=== PATIENT | female | born 1975 | race American Indian/Alaskan Native ===

== ENCOUNTER 2019-08-23 22:38 | Emergency (ER) | payer MEDICAID, OTHER ==
--- NOTE | 2019-08-23 22:49 | Event Note ---
ED Screening Note Date of service: 08/23/19 Time: 22:48 ED Screening Note: 44 y o f presents with dysuria and suprapubic pain This initial assessment/diagnostic orders/clinical plan/treatment(s) is/are subject to change based on patients health status, clinical progression and re- assessment by fellow clinical providers in the ED. Further treatment and workup at subsequent clinical providers discretion. Patient/guardian urged not to elope from the ED as their condition may be serious if not clinically assessed and managed. Initial orders include: ua
[2019-08-24 00:55] LABS: Bilirubin,Urine NEG (Negative); Blood,Urine NEG (Negative); Color,Urine Yellow (Yellow); Mucus,Urine FEW /HPF; Protein,Urine <15 mg/dL mg/dL (Negative)
[2019-08-24 00:59] LABS: HCG Qualitative,Urine Negative (Negative)
[2019-08-24] MEDS ORDERED: SILVER NITRATE APPLICATOR 1 EA TP ONE ×2 (01:06→01:08)
--- NOTE | 2019-08-24 01:16 | Emergency Department Report ---
ED Female HPI - General Chief complaint: Urogenital-Female Stated complaint: PAINFUL VAGINAL CYST Time Seen by Provider: 08/23/19 22:48 Source: patient Mode of arrival: Ambulatory Limitations: No Limitations - History of Present Illness Initial comments: Patient is a 44-year-old female who presents to the ED with complaints of bartholins cyst left side that began yesterday. She states she has discomfort with walking and sitting. Patient states that she feels a pressure. she denies any drainage. She denies any fever, nausea, vomiting, abdominal pain, vaginal discharge, urinary symptoms. Patient states that she has had this bartholins cyst recurrently for the last 25 years and has to have it lanced approximately every 2 years. Patient states that she was supposed to have a surgical procedure performed when she was in [place] but she moved to [place] and does not have an AUTO SERVICE WRITER here. LNMP was August 14. She denies any allergies to m edications. - Related Data Home Medications Medication Instructions Recorded Confirmed Last Taken Vistaril 25 mg PO Q4H PRN 09/06/13 11/12/13 09/04/13 Previous Rx's Medication Instructions Recorded Last Taken Type Famotidine [Pepcid] 40 mg PO QHS #30 tablet 12/02/13 Unknown Rx Magnesium Hydroxide [Milk of 2,400 mg PO QDAY PRN #100 ml 12/02/13 Unknown Rx Magnesia] Metoclopramide HCl [Reglan] 10 mg PO Q6H PRN #60 tablet 12/02/13 Unknown Rx Vit-Fe Fumar-FA [ 1 each PO QDAY #30 tablet 12/02/13 Unknown Rx Vitamin] cephALEXin [Keflex] 500 mg PO Q6H #28 capsule 12/02/13 Unknown Rx Allergies Allergy/AdvReac Type Severity Reaction Status Date / Time No Known Allergies Allergy Verified 12/01/13 18:20 ED Review of Systems ROS: Stated complaint: PAINFUL VAGINAL CYST Other details as noted in HPI Comment: All other systems reviewed and negative ED Past Medical Hx - Past Medical History Hx Psychiatric Treatment: Yes (anxiety, PTSD, borderline personality, MDD) Additional medical history: HPV, Barretts esophagus - Surgical History Additional Surgical History: Ovarian Cyst removal-1992, meniscus tear - Social History Smoking Status: Current Every Day Smoker - Medications Home Medications: Home Medications Medication Instructions Recorded Confirmed Last Taken Type Vistaril 25 mg PO Q4H PRN 09/06/13 11/12/13 09/04/13 History Famotidine [Pepcid] 40 mg PO QHS #30 tablet 12/02/13 Unknown Rx Magnesium Hydroxide [Milk of 2,400 mg PO QDAY PRN #100 ml 12/02/13 Unknown Rx Magnesia] Metoclopramide HCl [Reglan] 10 mg PO Q6H PRN #60 tablet 12/02/13 Unknown Rx Vit-Fe Fumar-FA [ 1 each PO QDAY #30 tablet 12/02/13 Unknown Rx Vitamin] cephALEXin [Keflex] 500 mg PO Q6H #28 capsule 12/02/13 Unknown Rx ED Physical Exam - General Limitations: No Limitations General appearance: alert, in no apparent distress - Head Head exam: Present: atraumatic, normocephalic - Eye Eye exam: Present: normal appearance - ENT ENT exam: Present: mucous membranes moist - External exam: Present: swelling (3 cm area of edema and fluctuance to the left labia, asphalt smoother: sagrario howe RN) - Neurological Exam Neurological exam: Present: alert, oriented X3 - Psychiatric Psychiatric exam: Present: normal affect, normal mood - Skin Skin exam: Present: warm, dry, intact ED Course Vital Signs 08/23/19 08/24/19 22:49 01:40 Temperature 98.6 F 98.6 F Pulse Rate 83 83 Respiratory 18 18 Rate Blood Pressure 117/70 Blood Pressure 118/79 [Left] O2 Sat by Pulse 98 98 Oximetry - I & D Left Vagina Type of Procedure: Simple Site: left labia Blade Size: 11 I & D Procedure: betadine prep, sterile drapes applied, sterile dressing applied Progress: area cleaned with betadine, sterile drapes applied, 5 cc of 1% lidocaine without epi used as anesthetic, 0.5 cm incision made, copious amounts of brown discharge and some blood present, silver nitrate used for very small area of bleeding, and bleeding completely resolved, irrigated with 30 cc of saline, pt tolerated well ED Medical Decision Making - Medical Decision Making Patient is a 44-year-old female who presents to the ED with complaints of bartholins cyst left side that began yesterday. She states she has discomfort with walking and sitting. Patient states that she feels a pressure. she denies any drainage. She denies any fever, nausea, vomiting, abdominal pain, vaginal discharge, urinary symptoms. Patient states that she has had this bartholins cyst recurrently for the last 25 years and has to have it lanced approximately every 2 years. Patient states that she was supposed to have a surgical procedure performed when she was in [place] but she moved to [place] and does not have an AUTO SERVICE WRITER here. LNMP was August 14. She denies any allergies to medications. on exam: 3 cm area of edema and fluctuance to the left labia, asphalt smoother: sagrario howe RN, I&D performed per procedure note with asphalt smoother present. UA without UTI, urine preg negative. advised pt to please keep area clean and dry. may wash with soap and water and immediately dry. No hot tub, pool, soaking in water. Follow up with an AUTO SERVICE WRITER in the next 2-3 days. Return to the emergency room for any new or worsening symptoms. Critical care attestation.: If time is entered above; I have spent that time in minutes in the direct care of this critically ill patient, excluding procedure time. ED Disposition Clinical Impression: Bartholin cyst, Encounter for incision and drainage procedure Disposition: TO HOME OR SELFCARE Is pt being admited?: No Does the pt Need Aspirin: No Condition: Stable Instructions: Bartholin Cyst (ED), Incision and Drainage (ED) Additional Instructions: Please keep area clean and dry. may wash with soap and water and immediately dry. No hot tub, pool, soaking in water. Follow up with an AUTO SERVICE WRITER in the next 2-3 days. Return to the emergency room for any new or worsening symptoms. Referrals: CHARBEL BARRON MD [Staff Physician] - 2-3 Days SHANIKA GREGORIO MD [Staff Physician] - 2-3 Days AYANNA GREGORIO MD [Staff Physician] - 2-3 Days Time of Disposition: 01:28 Print Language: DANISH
[2019-08-24 02:01] VITALS: BP 118/79
[2019-08-24] MEDS ORDERED: LIDOCAINE-MPF (1%) 10 MG/1 ML VIAL 5 ML INFILTRATI ONE (04:37)
== END 2019-08-24 01:40 | disposition home or self-care (01) ==
LOC: ED 22:38
DX: N75.0 Cyst of Bartholin's gland (principal); F41.9 Anxiety disorder, unspecified; F43.10 Post-traumatic stress disorder, unspecified; F32.9 Major depressive disorder, single episode, unspecified; F17.200 Nicotine dependence, unspecified, uncomplicated; Z79.899 Other long term (current) drug therapy; Z98.890 Other specified postprocedural states
CPT/HCPCS: 81001; 81025

== ENCOUNTER 2021-04-25 10:39 | Emergency (ER) | payer MEDICAID, OTHER ==
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
== END 2021-04-25 13:21 | disposition home or self-care (01) ==
LOC: ED 10:39
CPT/HCPCS: 99282